=== PATIENT | male | born 1960 | race Caucasian/White ===

== ENCOUNTER 2022-02-25 09:13 | Emergency (ER) | payer OTHER ==
[~2022-02-25] VITALS: Ht 170.2 cm; Wt 89.0 kg
[2022-02-25] MEDS ORDERED: AZEL6DRO5 RIGHTEYE (09:33)
[2022-02-25] MEDS ORDERED: LORA10TA7 PO (09:34)
[2022-02-25] MEDS ORDERED: AMLO5TAB88 PO (09:34)
[2022-02-25] MEDS ORDERED: LOSA50TA41 PO (09:34)
[2022-02-25 11:41] VITALS: BP 160/93
== END 2022-02-25 13:16 | disposition home or self-care (01) ==
LOC: ER 09:13
DX: H33.21 Serous retinal detachment, right eye (principal); I10 Essential (primary) hypertension
CPT/HCPCS: 99284